=== PATIENT | male | born 2000 | race Caucasian/White ===

== ENCOUNTER 2024-07-09 15:39 | Emergency (ER) | payer BC ==
[~2024-07-09] VITALS: Ht 160 cm; Wt 63.0 kg
[2024-07-09] MEDS ORDERED: SYNTHROID88 MCG PO (16:19)
[2024-07-09] MEDS ORDERED: DEPLIN FC7.5 MG PO (16:19)
[2024-07-09] MEDS ORDERED: METFORMIN HCL500 MG (16:19)
[2024-07-09] MEDS ORDERED: FLUVOXAMINE MA100 M1 PO (16:20)
== END 2024-07-09 21:01 | disposition home or self-care (01) ==
LOC: ER 15:41
DX: R53.81 Other malaise (principal); K59.01 Slow transit constipation; J00 Acute nasopharyngitis [common cold]; Z20.822 Contact with and (suspected) exposure to COVID-19; Z88.0 Allergy status to penicillin